=== PATIENT | female | born 1995 | race Caucasian/White ===

== ENCOUNTER 2020-06-02 04:59 | Inpatient (IN) ==
[2020-06-02] MEDS ORDERED: LACTATED RINGERS 500 ML IV PRN (05:15)
[2020-06-02] MEDS ORDERED: ACETAMINOPHEN 325 MG TABLET PO PRN ×2 (05:15→15:30)
[2020-06-02] MEDS ORDERED: ONDANSETRON 4 MG/2 ML VIAL IV PRN ×2 (05:15→15:30)
[2020-06-02] MEDS ORDERED: OXYTOCIN/LR 20 UNIT/1,000 ML BAG IV SCH (05:30)
[2020-06-02] MEDS: LACTATED RINGERS 1,000 ML IV SCH ×2 (05:55→20:22)
[2020-06-02 06:01] LABS: Basophils % 0.2 % (0.0-0.8); Eosinophils # 0.1 10*3/uL (0.0-0.87); Eosinophils % 0.5 % (0.00-10.9); Hematocrit 29.3 VOL% (35.7-47.0); Hemoglobin 9.2 GM/DL (12.0-16.0); Immature Granulocytes % 0.6 %; Immature Granulocytes Absolute 0.07 #; Lymphocytes # 1.8 10*3/uL (1.4-4.0); Lymphocytes % 15.9 % (21.3-54.2); Mean Corpuscular HGB Conc 31.4 GM/DL (32-36); Mean Corpuscular Volume 75.1 FL (87-102); Mean Platelet Volume 10.1 FL (9.6-12.0); Neutrophils % 77.8 % (38.7-73.9); Platelet Count 302 T/CUMM (130-400); White Blood Count 11.4 T/CUMM (4-12)
[2020-06-02] MEDS ORDERED: LACTATED RINGERS 1,000 ML IV ONE (08:01)
[2020-06-02] MEDS ORDERED: ONDANSETRON 4 MG/2 ML VIAL IV ONE (08:01)
[2020-06-02] MEDS ORDERED: ePHEDrine 50 MG/ML VIAL IV PRN (08:01)
[2020-06-02] MEDS ORDERED: NALOXONE 0.4 MG/ML VIAL IV PRN (08:01)
[2020-06-02] MEDS ORDERED: CITRIC ACID/SODIUM CITRATE 30 ML UDCUP PO ONE (08:01)
[2020-06-02] MEDS ORDERED: hydrOXYzine HCL 25 MG/1 ML VIAL IM PRN (08:01)
[2020-06-02] MEDS ORDERED: diphenhydrAMINE 50 MG/1 ML VIAL IV PRN ×2 (08:01)
[2020-06-02] MEDS ORDERED: PROMETHAZINE 25 MG/1 ML VIAL IM ONE (08:01)
[2020-06-02] MEDS ORDERED: FAMOTIDINE 20 MG/2 ML VIAL IV ONE (08:01)
[2020-06-02] MEDS: fentaNYL 2 MCG/ROPIV 0.2% EPID 100 ML EPIDURAL SCH ×2 (09:44→20:23)
[2020-06-02] MEDS ORDERED: LIDOCAINE MPF 2% /EPI 20 ML VIAL ONE (10:38)
[2020-06-02] MEDS ORDERED: fentaNYL 100 MCG/2 ML VIAL ONE (10:38)
[2020-06-02 10:50] LABS: Bacteria,Urine Occasional /HPF (Few); Bilirubin,Urine Negative (Negative); Blood, Urine Small mg/dL (Negative); Glucose,Urine (UA) Negative (Negative); Ketones,Urine Negative (Negative); Mucus,Urine Occasional /LPF (Occasional); Nitrite,Urine Negative (Negative); Protein,Urine Negative; RBC,Urine 10 /HPF (0-4); Squamous Epithelial Cell,Urine Occasional /HPF (0-10); Urine Appearance CLEAR (Clear); Urine Color Yellow (Yellow); Urine Urobilinogen < 2.0 EU/DL (0.2-1.0); WBC,Urine 1 /HPF (0-6)
[2020-06-02] MEDS ORDERED: BUTORPHANOL 2 MG/ML VIAL IV PRN (10:58)
[2020-06-02] MEDS ORDERED: BUTORPHANOL 1 MG/ML VIAL IV PRN (10:58)
[2020-06-02] MEDS ORDERED: TRANEXAMIC ACID 1,000 MG/10 ML VIAL ONE (15:01)
[2020-06-02] MEDS ORDERED: miSOPROStoL 200 MCG TABLET ONE (15:01)
[2020-06-02] MEDS ORDERED: OXYTOCIN/LR 20 UNIT/1,000 ML BAG IV ONE ×2 (15:01→15:30)
[2020-06-02] MEDS ORDERED: METHYLERGONOVINE 0.2 MG/1 ML AMP ONE (15:02)
[2020-06-02] MEDS ORDERED: CARBOPROST TROMETHAMINE 250 MCG/ML AMP IM ONE (15:02)
[2020-06-02] MEDS ORDERED: HYDROCORTISONE 2.5% RECTAL CREAM 30 GM TUBE TOP PRN (15:30)
[2020-06-02] MEDS ORDERED: MEASLES/MUMPS/RUBELLA VACCINE 0.5 ML VIAL SUBCUT ONE (15:30)
[2020-06-02] MEDS ORDERED: DIPH/TET/ACEL PERT BOOSTER VACCINE 0.5 ML VIAL IM ONE (15:30)
[2020-06-02] MEDS ORDERED: oxyCODONE/ACETAMINOPHEN 5-325 MG TABLET PO PRN ×2 (15:30)
[2020-06-02] MEDS ORDERED: RHO(D) IMMUNE GLOBULIN 300 MCG SYRINGE IM ONE (15:30)
[2020-06-02] MEDS ORDERED: WITCH HAZEL PADS 100/JAR TOP PRN (15:30)
[2020-06-02] MEDS ORDERED: BENZOCAINE 20%/MENTHOL 0.5% SPRAY 56 GM CAN TOP PRN (15:30)
[2020-06-02] MEDS ORDERED: BISACODYL 10 MG SUPP RECTAL PRN (15:30)
[2020-06-02] MEDS ORDERED: LANOLIN 50% CREAM 0.3 OZ TUBE TOP PRN (15:30)
[2020-06-02 15:45] LABS: Cord Arterial Blood HCO3 19.9 MMOL/L
[2020-06-02 15:48] LABS: Cord Venous Blood HCO3 22.5 MMOL/L; Cord Venous Blood PCO2 38.2 MMHG; Cord Venous Blood PO2 32.3
[2020-06-02] MEDS: IBUPROFEN 800 MG TABLET PO PRN (18:43)
[2020-06-02] MEDS: DOCUSATE SODIUM 100 MG CAPSULE PO SCH (22:04)
[2020-06-03 03:00] LABS: Basophils % 0.3 % (0.0-0.8); Eosinophils # 0.1 10*3/uL (0.0-0.87); Eosinophils % 1.2 % (0.00-10.9); Hematocrit 26.5 VOL% (35.7-47.0); Immature Granulocytes % 0.5 %; Immature Granulocytes Absolute 0.06 #; Lymphocytes # 2.3 10*3/uL (1.4-4.0); Lymphocytes % 20.8 % (21.3-54.2); Mean Corpuscular HGB Conc 30.2 GM/DL (32-36); Mean Corpuscular Volume 75.5 FL (87-102); Mean Platelet Volume 10.1 FL (9.6-12.0); Monocytes % 6.8 % (1.7-12.7); Neutrophils % 70.4 % (38.7-73.9); Platelet Count 219 T/CUMM (130-400); Red Blood Count 3.51 MC/CUMM (3.8-5.5); White Blood Count 11.2 T/CUMM (4-12)
[2020-06-03] MEDS ORDERED: MULTIVITAMIN (PRENATAL) TABLET PO SCH (09:00)
[2020-06-03] MEDS: IBUPROFEN 800 MG TABLET PO PRN ×2 (09:01→21:12)
[2020-06-03] MEDS: DOCUSATE SODIUM 100 MG CAPSULE PO SCH (20:37)
[2020-06-04] MEDS: DOCUSATE SODIUM 100 MG CAPSULE PO SCH (09:11)
[2020-06-04 11:54] VITALS: BP 143/72
== END 2020-06-04 11:50 | disposition home or self-care (01) | DRG 807 ==
LOC: N.LD 04:59 → N.OB 06-03 09:50
PROVIDERS: ADMIT Obstetrics & Gynecology; ATTEND Obstetrics & Gynecology